=== PATIENT | male | born 1995 | race Caucasian/White ===

== ENCOUNTER 2018-04-01 06:30 | Emergency (ER) | payer OTHER ==
[~2018-04-01] VITALS: Ht 170.2 cm; Wt 54.0 kg
[2018-04-01 06:35] VITALS: BP 125/68
== END 2018-04-01 07:17 | disposition home or self-care (01) ==
LOC: ER 06:31
DX: R10.9 Unspecified abdominal pain (principal); R19.7 Diarrhea, unspecified
CPT/HCPCS: 99281